=== PATIENT | female | born 1980 | race Caucasian/White ===

== ENCOUNTER 2019-09-03 12:51 | Inpatient (IN) ==
[2019-09-03] MEDS ORDERED: TORADOL IM ONE (13:33)
[2019-09-03] MEDS ORDERED: ZOFRAN ODT PO ONE (13:34)
[2019-09-03 13:53] LABS: URINE SOURCE CLEAN CATCH
[2019-09-03 13:55] LABS: BASO# 0.06 X1000 (0.0-0.2); BASO% 0.3 % (0.0-0.8); BILIRUBIN URINE NEGATIVE (NEGATIVE); BLOOD URINE NEGATIVE (NEGATIVE); COLOR STRAW; EOS# 0.07 X1000 (0.0-0.7); EOS% 0.4 % (0.0-10.0); GLUCOSE URINE NEGATIVE (NEGATIVE); HEMATOCRIT 45.7 % (37.0-47.0); HEMOGLOBIN 15.3 g/dL (12.0-16.0); IMM GRAN# 0.07 X1000 (0.0-0.04); IMM GRAN% 0.4 % (0.0-0.5); KETONE URINE NEGATIVE (NEGATIVE); LEUKOCYTES URINE NEGATIVE (NEGATIVE); LYMPH# 2.39 X1000 (1.2-3.4); LYMPH% 13.3 % (20.5-51.1); MCH 30.8 PG (27-31); MCHC 33.5 g/dL (33-37); MONO# 1.02 X1000 (0.11-0.59); MONO% 5.7 % (1.7-9.3); MPV 10.6 FL (7.4-10.4); NEUT# 14.41 X1000 (1.4-6.5); NEUT% 79.9 % (42.2-75.2); NITRITE URINE NEGATIVE (NEGATIVE); PH URINE 6.5; PLT 325 X1000 (130-400); PROTEIN URINE NEGATIVE (NEGATIVE); RBC 4.97 XMIL (4.2-5.4); RDW 12.3 % (11.5-14.5); SP GRAVITY URINE 1.008; TURBIDITY URINE CLEAR (CLEAR); UROBILINOGEN URINE NORMAL (NORMAL); WBC 18.02 X1000 (4.8-10.8)
[2019-09-03 13:57] LABS: UR EPITHELIAL CELLS <10 /HPF (<10); URINE BACTERIA NEGATIVE /HPF; URINE RBC <10 /HPF (<10); URINE WBC <10 /HPF (<10)
[2019-09-03 14:12] LABS: AGAP 14; ALB/GLOB RATIO 1.5; ALBUMIN 4.3 g/dL (3.5-5.0); ALKALINE PHOSPHATASE 88 U/L (32-104); BUN 8 mg/dL (8-22); CALCIUM 9.6 mg/dL (8.8-10.2); CHLORIDE 101 mmol/L (98-107); COSMO 272; CREATININE 0.7 mg/dL (0.5-0.9); ESTIMATED GFR > 60; GLUCOSE 93 mg/dL (70-104); GOT 26 U/L (10-30); GPT 27 U/L (10-36); POTASSIUM 3.9 mmol/L (3.5-5.1); SODIUM 137 mmol/L (136-145); TCO2 22 mmol/L (25-35); TOTAL BILIRUBIN 0.49 mg/dL (0.20-1.00); TOTAL PROTEIN 7.2 g/dL (6.3-8.3)
--- NOTE | 2019-09-03 14:33 | Diag Imaging Result Doc PS360 ---
EXAM: CT ABDOMEN/PELVIS W/O CONTRAST HISTORY: right flank pain TECHNIQUE: CT abdomen and pelvis without oral or intravenous contrast COMPARISON: None. FINDINGS: The gallbladder has been removed. The liver is prominent measuring over 20 cm in length. No focal hepatic abnormality identified on this noncontrasted exam. No inflammation about the pancreas. Normal spleen and adrenal glands. There is a 4 mm nonobstructing right lower pole renal stone. No left renal stone. No perinephric inflammation. No ureteral stones or hydronephrosis. Normal aorta. Normal appendix. No abscess. No bowel obstruction. No ascites. The urinary bladder is only mildly distended. The uterus has been removed. No pelvic mass. IMPRESSION: 1.Hepatomegaly 2.Cholecystectomy 3.Nonobstructing right renal stone 4.Hysterectomy This exam was performed using automated exposure control, adjustment of mA or kV according to patient size, and/or use of iterative reconstruction technique. Electronically signed by Abel Reece 09/03/2019 2:30 PM
--- NOTE | 2019-09-03 15:08 | PROVIDER DOCUMENTATION ---
HPI-Abdominal Pain/GI Problem - General Chief Complaint: Flank Pain Stated Complaint: RIGHT SIDE PAIN Time Seen by Provider: 09/03/19 13:11 Allergies/Adverse Reactions: Patient Allergies Allergy/AdvReac Type Severity Reaction Status Date / Time hydromorphone HCl * Allergy Mild RASH Verified 09/03/19 14:50 [From Dilaudid] Sulfa (Sulfonamide Allergy Mild RASH Verified 09/03/19 14:50 Antibiotics) Corticosteroids Allergy NAUSEA Verified 09/03/19 14:50 (Glucocorticoids) Home Medications: Home Medication List Medication Instructions Recorded Confirmed Last Taken Type Levothyroxine [Synthroid] 1 tab PO DAILY 09/03/19 09/03/19 09/03/19 History Metformin [Glucophage] 1 tab PO BID 09/03/19 09/03/19 09/03/19 History Nebivolol HCl [Bystolic] 1 tab PO DAILY 09/03/19 09/03/19 09/02/19 History Valacyclovir [Valtrex] 1 tab PO DAILY 09/03/19 09/03/19 09/03/19 History - History of Present Illness-ABD Nature of Presenting Problems: Patient is a 39 year old white female who presents with worsening lower abdomen pain with associated diarrhea, nausea, and vomiting. Unable to keep fluids down. Abdominal Pain Onset Location: reports: other (lower abdomen pain) Quality of Pain: reports: cramping Severity in ED: reports: moderate Onset/Duration: reports: gradual Review of Systems - Adult - REVIEW OF SYSTEMS - ADULT Constitutional: denies: chills, fever Eyes: reports: no symptoms reported Ears, Nose, Mouth & Throat: reports: no symptoms reported Cardiovascular: reports: no symptoms reported Respiratory: reports: no symptoms reported Gastrointestinal: reports: abdominal pain, diarrhea, nausea, vomiting Genitourinary: reports: no symptoms reported Musculoskeletal: reports: no symptoms reported Integumentary: reports: no symptoms reported Neurological: reports: no symptoms reported Psychiatric: reports: no symptoms reported Endocrine: reports: no symptoms reported Hematologic/Lymphatic: reports: no symptoms reported Allergic/Immunologic: reports: no symptoms reported Past History - Adult - PAST MEDICAL HISTORY-ADULT Review of Records: reports: Old Records Reviewed, Nursing Assessment Review, Medications Reviewed, Social history reviewed & non-contributory. Major Childhood Illnesses: reports: denies history Cardiovascular: reports: HTN Respiratory: reports: asthma Gastrointestinal: reports: denies history Obstetrical/Gynecological: reports: denies history Genitourinary: reports: denies history Musculoskeletal: reports: denies history Neurological: reports: denies history Endocrine/Immune: reports: denies history Other Conditions: reports: denies history - PRIOR SURGERIES/PROCEDURES Surgical/Procedure History: reports: cholecystectomy, , tonsillectomy, joint replacement - IMMUNIZATION STATUS Childhood Immunizations: See Nurse Assessment Flu Vaccine: See Nurse Assessment - FAMILY HISTORY Family History: reviewed, not pertinent Physical Exam-General - CONSTITUTIONAL General Appearance: alert, no apparent distress, other (in pain) - EYES Eyes: other (clear) - HEAD, EARS, NOSE, MOUTH & THROAT HENMT: normocephalic/atraumatic, moist mucous membranes - NECK Neck: non-tender, full range of motion, supple - RESPIRATORY Respiratory: lungs clear - CARDIOVASCULAR Cardiovascular: regular rate, rhythm - GASTROINTESTINAL (ABDOMEN) Abdominal Exam: soft, other (tenderness over lower abdomen, no rebound or guarding) - LYMPHATIC Lymphatic: no adenopathy - MUSCULOSKELETAL Back Exam: normal inspection Extremity: non-tender - SKIN Integumentary: normal color, normal turgor - NEUROLOGIC Neurologic: grossly normal Progress - PLAN OF CARE/RESULTS Progress/Plan/Lab Results: Vital Signs - 8 hr 09/03/19 13:01 Temperature 98.0 F Pulse Rate 89 Respiratory Rate 16 Blood Pressure 141/94 O2 Sat by Pulse Oximetry 97 Laboratory Results - last 24 hr 09/03/19 09/03/19 09/03/19 13:26 13:26 13:26 WBC 18.02 H RBC 4.97 Hgb 15.3 Hct 45.7 MCV 92.0 MCH 30.8 MCHC 33.5 RDW Std Deviation 12.3 Plt Count 325 MPV 10.6 H Immature Gran % (Auto) 0.4 Neut % (Auto) 79.9 H Lymph % (Auto) 13.3 L Lake % (Auto) 5.7 Eos % (Auto) 0.4 Baso % (Auto) 0.3 Immature Gran # (Auto) 0.07 H Neut # (Auto) 14.41 H Lymph # (Auto) 2.39 Lake # (Auto) 1.02 H Eos # (Auto) 0.07 Baso # (Auto) 0.06 Sodium 137 Potassium 3.9 Chloride 101 Carbon Dioxide 22 L Anion Gap 14 BUN 8 Creatinine 0.7 Estimated GFR/1.73 m2 > 60 BUN/Creatinine Ratio 11 Glucose 93 Calculated Osmolality 272 Calcium 9.6 Total Bilirubin 0.49 AST 26 ALT 27 Alkaline Phosphatase 88 Total Protein 7.2 Albumin 4.3 Globulin 2.9 Albumin/Globulin Ratio 1.5 Urine Source CLEAN CATCH Urine Color STRAW Urine Turbidity CLEAR Urine pH 6.5 Ur Specific [place] 1.008 Urine Protein NEGATIVE Ur Glucose (Stick) NEGATIVE Ur Ketones (Stick) NEGATIVE Urine Blood NEGATIVE Urine Nitrite NEGATIVE Urine Bilirubin NEGATIVE Urobilinogen Dipstick NORMAL Urine Leukocytes NEGATIVE Urine WBC (Auto) <10 Urine RBC (Auto) <10 U Epithel Cells (Auto) <10 Urine Bacteria (Auto) NEGATIVE Orders Category Date Time Status CT ABDOMEN/PELVIS W/O CONTRAST [CT] Stat Exams 09/03/19 13:35 Completed CBC WITH ELECTRONIC DIFF [HEME] Stat Lab 09/03/19 13:26 Completed CMP [COMPREHENSIVE METABOLIC PANEL] [CHEM] Stat Lab 09/03/19 13:26 Completed URINALYSIS W/POSS RFLX CULT [URINALYSIS] Stat Lab 09/03/19 13:26 Completed Ketorolac [Toradol] Med 09/03/19 13:33 Discontinued 60 mg IM NOW ONE Ondansetron Odt [Zofran Odt] Med 09/03/19 13:34 Discontinued 4 mg PO NOW ONE Result Diagrams: 09/03/19 13:26 09/03/19 13:26 - CT/MRI 1 CT Study: Abdomen, Pelvis CT Results: NAD, normal appendix Departure - Departure Date of Disposition Decision: 09/03/19 Time of Disposition Decision: 16:51 DIAGNOSIS: Lower abdominal pain Leukocytosis Qualifiers: Leukocytosis type: unspecified Qualified Code(s): D72.829 - Elevated white blood cell count, unspecified Nausea and vomiting Qualifiers: Vomiting type: unspecified Vomiting Intractability: unspecified Qualified Code(s): R11.2 - Nausea with vomiting, unspecified Disposition: ADMITTED INPATIENT 09 Certified Medical Emergency: Emergent Condition: Stable Referrals and Follow-Ups: None,PCP [Primary Care Provider] - - Critical Care Note This patient required my direct & personal management of CC.: No Attestation - Physician/ KLARISSA Attestation Patient care was provided by Advanced Practice Provider:: No The physician spent face to face time with patient:: Yes Advanced Practice Provider documentation review:: Supervising physician onsite and consulted in the evaluation and care of this patient. The physician did have a face to face encounter with the patient.
--- NOTE | 2019-09-03 15:24 | Diag Imaging Result Doc PS360 ---
EXAM: CHEST-2 VIEWS HISTORY: leukocytosis TECHNIQUE: Two views COMPARISON: 09/02/2013 FINDINGS: The lungs are well expanded. The heart is not enlarged. The vessels are not distended. There are no infiltrates. No pleural effusions. IMPRESSION: No pneumonia Electronically signed by Abel Reece 09/03/2019 3:22 PM
[2019-09-03] MEDS ORDERED: PHENERGAN IV PRN (17:53)
[2019-09-03] MEDS ORDERED: SODIUM CHLORIDE 0.9% INJ PRN (17:53)
[2019-09-03] MEDS ORDERED: TYLENOL PO PRN (17:53)
[2019-09-03] MEDS ORDERED: LEVAQUIN 750 MG in NS 150 ML IV SCH (18:00)
[2019-09-03] MEDS ORDERED: SODIUM CHLORIDE 0.9% INJ SCH (18:00)
--- NOTE | 2019-09-03 18:30 | HISTORY AND PHYSICAL ---
PRIMARY CARE PROVIDER: No one. CHIEF COMPLAINT: Abdominal pain, nausea, vomiting, diarrhea. HISTORY OF PRESENT ILLNESS: Ms. Kiara Perry is a 39-year-old female with a medical history of morbid obesity, hypertension, borderline diabetes, PCOS, hypothyroidism, HSV 2, and irritable bowel syndrome with diarrhea. She has chronic diarrhea. She states that last weekend she had about a 2-hour bout of severe abdominal pain, but then it went away and then on Tuesday, the abdominal pain returned. It is primarily in the right lower quadrant area. Her diarrhea increased to about 10 to 15 times a day, was watery and bright green. She also had associated nausea and vomiting and the nausea has been constant. She denies fever or any other complaints. Her white count is 18,000. She is afebrile. So, we will send off some stool studies. Her abdominal CT did not show anything acute, so we will get an ultrasound and probably treat either like it is a gastroenteritis, but given the elevated white blood cell count, we will probably add Levaquin and Flagyl along with it. PAST MEDICAL HISTORY: 1. Hypertension. 2. Diabetes mellitus type 2. 3. Hypothyroidism. 4. 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 5. PCOS with endometriosis. 6. Irritable bowel syndrome with diarrhea. SURGICAL HISTORY: 1. She states that she had a granuloma removed from her colon back in 2014. Had a repeat colonoscopy in 2016 that was clear [address] Dr[address] Leslie. 2. section. 3. Left knee scope. 4. Bilateral feet bunionectomy. 5. Partial hysterectomy. 6. Multiple female scopes for endometriosis. 7. Cholecystectomy. 8. Laminectomy of the lower back. 9. Cyst drained from the sinuses. 10. Tonsillectomy and adenoidectomy. SOCIAL HISTORY: Quit smoking in 2003. Prior to that, she smoked less than a half pack per day since the age of 19. Rarely drinks alcohol, maybe once in a year. Denies any illicit drug use. Lives with her grandmother and daughter. 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 FAMILY HISTORY: Mother, hypertension, diabetes and an autoimmune lung disease. She was unclear of what that was. Father hypertension. ALLERGIES: Sulfa, Dilaudid, and latex, but also listed as glucocorticoid or corticosteroids. HOME MEDICATIONS: 1. Bystolic 2.5 mg p.o. daily. 2. Metformin 500 mg p.o. twice daily. 3. Synthroid 75 mcg p.o. daily. 4. Valtrex 500 mg p.o. daily. REVIEW OF SYSTEMS: Fourteen point review of systems are complete and all were negative except for those mentioned above in HPI. PHYSICAL EXAMINATION: VITAL SIGNS: Temperature 98 degrees, heart rate 89, respiratory rate 16, blood pressure 141/94, O2 saturation 97% on room air. She is 6 feet 1-1/2 inches tall. She is 292 pounds with a BMI of 38. GENERAL: Ms. Kiara Perry is a 39-year-old female. She is in no acute distress. She is able answer questions appropriately. HEENT: Atraumatic, normocephalic. Pupils equal, round, reactive to light. Extraocular movements intact. Mucous membranes are dry. NECK: Trachea midline. CARDIOVASCULAR: S1, S2. Regular rate and rhythm. No rubs, gallops, murmurs. She has trace lower extremity edema +2 dorsalis and radial pulses. Negative for JVD and carotid bruits. PULMONARY: Clear to auscultate, bilateral breath sounds. No accessory muscle use or work of breathing noted. Tolerating room air. GI: Soft, tender in the right lower quadrant. Positive bowel sounds x4. EXTREMITIES: Moves all extremities equally. Full range of motion. NEUROLOGIC: A and O x3. Follows commands. Sensory is intact. SKIN: Warm, dry, intact. LABORATORY DATA: White blood cells 18,000, hemoglobin 15, hematocrit 45, platelet count 325,000. Sodium 137, potassium 3.9, BUN 8, creatinine 0.7, glucose 93, calcium 9.6, albumin 4.3. Urinalysis negative. IMAGING: Chest x-ray: No pneumonia. Abdominal pelvic CT: Hepatomegaly, cholecystectomy, nonobstructive right renal stone and hysterectomy. ASSESSMENT AND PLAN: 1. Gastroenteritis, viral versus possible diverticulitis. She has got right lower quadrant abdominal pain, however, it was not picked up on imaging. She does have an elevated white blood cell count of 18,000. She is having significant diarrhea. We will go ahead and get stool samples to rule out Clostridium difficile and start her on Levaquin and Flagyl for now and will get ultrasound of the abdomen in the morning. 2. Hypertension. Continue Bystolic. 3. Diabetes mellitus, borderline type 2, mostly associated with the polycystic ovary syndrome. She is on metformin. We will continue that. 4. Hypothyroidism. Continue Synthroid. 5. History of chronic herpes simplex virus 2. Continue her Valtrex. 6. Irritable bowel syndrome with diarrhea. Please see #1. 7. Deep venous thrombosis prophylaxis. Sequential compression devices. Dictated by MASON Cota for Jayne Blackburn MD cc: MASON Cota MD
[2019-09-03 19:06] LABS: AMYLASE 50 U/L (20-200); LIPASE 28 U/L (13-60)
[2019-09-03] MEDS: HUMULIN R SUBQ SCH (20:43)
[2019-09-03] MEDS: GLUCOPHAGE PO SCH (20:43)
[2019-09-03] MEDS: FLAGYL 500 MG/NS 500 MG/100 ML IVPB IV SCH (20:44)
[2019-09-03] MEDS: NS 1,000 ML IV SCH (20:44)
[2019-09-03] MEDS: PROTONIX IV SCH (20:44)
[2019-09-03] MEDS: CARAFATE LIQUID PO SCH (20:44)
[2019-09-04] MEDS: FLAGYL 500 MG/NS 500 MG/100 ML IVPB IV SCH ×3 (01:11→19:12)
[2019-09-04] MEDS: CARAFATE LIQUID PO SCH ×4 (01:11→20:46)
[2019-09-04] MEDS: HUMULIN R SUBQ SCH ×4 (06:02→20:45)
[2019-09-04] MEDS: SYNTHROID PO SCH (06:03)
[2019-09-04 07:47] LABS: BASO# 0.03 X1000 (0.0-0.2); BASO% 0.2 % (0.0-0.8); EOS# 0.15 X1000 (0.0-0.7); EOS% 1.2 % (0.0-10.0); HEMATOCRIT 42.9 % (37.0-47.0); HEMOGLOBIN 14.4 g/dL (12.0-16.0); IMM GRAN# 0.02 X1000 (0.0-0.04); IMM GRAN% 0.2 % (0.0-0.5); LYMPH# 2.07 X1000 (1.2-3.4); LYMPH% 16.2 % (20.5-51.1); MCH 31.4 PG (27-31); MCHC 33.6 g/dL (33-37); MCV 93.5 FL (81-99); MONO# 1.24 X1000 (0.11-0.59); MONO% 9.7 % (1.7-9.3); MPV 10.4 FL (7.4-10.4); NEUT# 9.24 X1000 (1.4-6.5); NEUT% 72.5 % (42.2-75.2); PLT 253 X1000 (130-400); RBC 4.59 XMIL (4.2-5.4); RDW 12.3 % (11.5-14.5); WBC 12.75 X1000 (4.8-10.8)
[2019-09-04] MEDS ORDERED: TORADOL IV ONE ×2 (08:41→08:43)
--- NOTE | 2019-09-04 08:42 | Diag Imaging Result Doc PS360 ---
EXAM: US ABDOMEN-COMPLETE - 09/04/2019 HISTORY: abd pain TECHNIQUE: Ultrasound abdomen COMPARISON: 07/05/2019 CT abdomen/pelvis without contrast FINDINGS: The gallbladder is surgically absent. The common bile duct is normal caliber at 4 mm. The liver appears mildly echodense diffusely suggesting mild fatty infiltration. There is no focal liver lesion identified. Spleen is borderline prominent, measuring 12.7 x 13.6 x 7.3 cm in size. There is no focal splenic lesion identified. There is no ascites seen. Visualized portions of the pancreas are unremarkable. There are no abnormalities of the bilateral kidneys identified. The nonobstructing stone in the right kidney which was seen on the recent CT scan is not discretely visualized, but this may relate to greater sensitivity of CT for detecting small renal stones. The bilateral aorta and IVC appear normal caliber. IMPRESSION: Status post cholecystectomy. Normal caliber common bile duct at 4 mm. Apparent mild fatty infiltration of liver. Borderline prominent spleen. Electronically signed by Presley Helton 09/04/2019 8:39 AM
[2019-09-04 09:27] LABS: ALBUMIN 4.1 g/dL (3.5-5.0); ALKALINE PHOSPHATASE 79 U/L (32-104); BUN 10 mg/dL (8-22); CREATININE 0.8 mg/dL (0.5-0.9); ESTIMATED GFR > 60; GLUCOSE 92 mg/dL (70-104); GOT 25 U/L (10-30); GPT 22 U/L (10-36); MAGNESIUM 1.8 mg/dL (1.5-2.7); TCO2 17 mmol/L (25-35); TOTAL BILIRUBIN 0.81 mg/dL (0.20-1.00); TOTAL PROTEIN 6.2 g/dL (6.3-8.3)
[2019-09-04] MEDS: VALTREX PO SCH (09:36)
[2019-09-04] MEDS: BYSTOLIC PO SCH (09:37)
[2019-09-04] MEDS: GLUCOPHAGE PO SCH ×2 (09:37→20:46)
[2019-09-04] MEDS: NS 1,000 ML IV SCH ×2 (09:37→20:46)
[2019-09-04] MEDS: VANCOCIN PO SCH ×3 (09:39→20:46)
[2019-09-04 10:57] LABS: CHLORIDE 101 mmol/L (98-107); POTASSIUM 4.2 mmol/L (3.5-5.1); SODIUM 138 mmol/L (136-145)
[2019-09-04 11:41] LABS: AGAP 20
[2019-09-04 11:42] LABS: COSMO 274
--- NOTE | 2019-09-04 15:50 | PROGRESS NOTE ---
DATE: 09/04/2019 SUBJECTIVE: This patient has been admitted due to abdominal pain, nausea, vomiting, and diarrhea, had abdominal ultrasound which showed that this patient is status post cholecystectomy, but normal caliber of the common bile duct at 4 mm. Her abdomen and pelvis CT scan showed some hepatomegaly, cholecystectomy, nonobstructing right renal stone and hysterectomy. She is feeling better today. She has been getting IV fluids. She has a positive C difficile antigen and she has been placed on vancomycin. In the other hand, she has been getting Flagyl. I will continue with that. Her white blood cell count decreased from 18 to 12. Kidney function has been stable and lactate level normalized, initially was 3.1 and now it has been 1.42 and 2. I will continue with her home medications. OBJECTIVE: Vital Signs: Temperature 98.1 degrees, pulse 78, respiratory rate 18, blood pressure 165/94, oxygen saturation 98% on room air. HEENT: Head normocephalic, no trauma. PERRLA. Neck: Supple. No JVD. No masses. Central trachea. Chest: Clear to auscultation. No wheezing. No rales. Abdomen: Soft, is tender to palpation at the level of the periumbilical area and lower abdomen. She does have some signs of mild distention in the lower abdomen as well. No signs of peritoneal irritation, though. Extremities: No edema. No clubbing. No cyanosis. Neurological: The patient is awake and alert. She is oriented x3. No focal deficits. LABORATORY: WBC 12.7, hemoglobin 14.4, hematocrit 42.9, platelets 253,000. Sodium 138, potassium 4.2, chloride 101, bicarbonate 17, BUN 10, creatinine 0.8, glucose 92, calcium 9, magnesium 1.8. Normal LFTs. ASSESSMENT AND PLAN: 1. Abdominal pain, likely due to Clostridium difficile colitis. We do have a Clostridium difficile antigen that has been positive, and she has been placed on vancomycin orally and she was already getting Flagyl. We will continue with intravenous fluids. She is tolerating orals and actually I will advance her diet from a clear liquid diet to a full liquid diet to see how she does. 2. Hypertension. Continue with her home medication Bystolic. 3. Type 2 diabetes. She has been on metformin. We will continue with the same treatment. 4. Hypothyroidism. Continue with Synthroid. 5. History of chronic herpes simplex virus 2. Continue with Valtrex. 6. History of irritable bowel syndrome with diarrhea. We will continue with same management for now, seems to be getting better. 7. Deep vein thrombosis prophylaxis with sequential compression devices. cc: Rob Walker MD
[2019-09-04] MEDS: PROTONIX IV SCH (19:12)
[2019-09-05] MEDS: FLAGYL 500 MG/NS 500 MG/100 ML IVPB IV SCH ×3 (02:29→17:48)
[2019-09-05] MEDS: CARAFATE LIQUID PO SCH ×4 (02:29→20:58)
[2019-09-05] MEDS: VANCOCIN PO SCH ×4 (02:29→20:58)
[2019-09-05] MEDS: SYNTHROID PO SCH (06:32)
[2019-09-05] MEDS: HUMULIN R SUBQ SCH ×4 (06:53→21:00)
[2019-09-05 07:31] LABS: BASO# 0.02 X1000 (0.0-0.2); BASO% 0.2 % (0.0-0.8); EOS# 0.22 X1000 (0.0-0.7); HEMATOCRIT 40.6 % (37.0-47.0); HEMOGLOBIN 13.5 g/dL (12.0-16.0); IMM GRAN# 0.03 X1000 (0.0-0.04); IMM GRAN% 0.3 % (0.0-0.5); LYMPH# 2.19 X1000 (1.2-3.4); LYMPH% 20.1 % (20.5-51.1); MCH 31.3 PG (27-31); MCHC 33.3 g/dL (33-37); MONO# 0.89 X1000 (0.11-0.59); MONO% 8.2 % (1.7-9.3); MPV 9.8 FL (7.4-10.4); NEUT# 7.54 X1000 (1.4-6.5); NEUT% 69.2 % (42.2-75.2); PLT 238 X1000 (130-400); RBC 4.32 XMIL (4.2-5.4); RDW 12.2 % (11.5-14.5); WBC 10.89 X1000 (4.8-10.8)
[2019-09-05 07:59] LABS: AGAP 13; BUN 9 mg/dL (8-22); CALCIUM 8.8 mg/dL (8.8-10.2); CHLORIDE 105 mmol/L (98-107); COSMO 279; CREATININE 0.7 mg/dL (0.5-0.9); ESTIMATED GFR > 60; GLUCOSE 106 mg/dL (70-104); POTASSIUM 3.6 mmol/L (3.5-5.1); SODIUM 140 mmol/L (136-145); TCO2 22 mmol/L (25-35)
[2019-09-05] MEDS: BYSTOLIC PO SCH (08:59)
[2019-09-05] MEDS: VALTREX PO SCH (08:59)
[2019-09-05] MEDS: GLUCOPHAGE PO SCH ×2 (08:59→20:58)
[2019-09-05] MEDS ORDERED: IMODIUM PO PRN (13:37)
--- NOTE | 2019-09-05 16:10 | PROGRESS NOTE ---
DATE: 09/05/2019 SUBJECTIVE: This patient is still having diarrhea, at least 5 episodes yesterday night and 5 during the morning. She was having some nausea yesterday but not today, I believe she is getting better, numbers are better, including her white blood cell count and lactic acid. I will continue with IV fluids and treatment for 1 more day and tomorrow hopefully I will discharge this patient home. OBJECTIVE: Vital Signs: Temperature 97.8 degrees, pulse 69, respiratory rate 18, blood pressure 132/70, oxygen saturation 100% on room air. HEENT: Head normocephalic, no trauma. PERRLA. Neck: Supple. No JVD. No masses. Central trachea. Chest: Clear to auscultation. No wheezing. No rales. Abdomen: Soft, is tender to palpation at the level of the periumbilical area and lower abdomen. Extremities: No edema, no clubbing, no cyanosis. Neurological: The patient is awake, alert. She is oriented x3. No focal deficits. LABORATORY: WBC 10.8, hemoglobin 13.5, hematocrit 40.6, platelets 238,000. Sodium 140, potassium 3.6, chloride 105, bicarbonate 22, BUN 9, creatinine 0.7, glucose 106, calcium 8.8, magnesium 1.9. ASSESSMENT AND PLAN: 1. Abdominal pain, likely due to Clostridium difficile colitis. She has been getting vancomycin p.o. and Flagyl intravenous. She is getting better. Continue with intravenous fluids. I will advance the diet from a liquid diet to a soft diet, let us see how she does. She was having nausea yesterday night. 2. Hypertension. Continue with Bystolic. 3. Type 2 diabetes. She has been on metformin, continue with same management. 4. Hypothyroidism. Continue with Synthroid. 5. Chronic herpes simplex virus II. Continue with Valtrex. 6. History of irritable bowel syndrome with diarrhea. Continue with same management for now. She seems to be getting better. 7. Deep vein thrombosis prophylaxis with sequential compression devices. cc: Rob Walker MD
[2019-09-05] MEDS: PROTONIX IV SCH (17:48)
[2019-09-05] MEDS: NS 1,000 ML IV SCH ×2 (17:52)
[2019-09-06] MEDS: VANCOCIN PO SCH ×2 (02:58→09:03)
[2019-09-06] MEDS: CARAFATE LIQUID PO SCH ×2 (02:58→09:03)
[2019-09-06] MEDS: FLAGYL 500 MG/NS 500 MG/100 ML IVPB IV SCH ×2 (02:58→09:02)
[2019-09-06] MEDS: NS 1,000 ML IV SCH ×2 (03:01→09:11)
[2019-09-06] MEDS: HUMULIN R SUBQ SCH (06:24)
[2019-09-06] MEDS: SYNTHROID PO SCH (06:49)
[2019-09-06 07:31] VITALS: BP 152/79
[2019-09-06 08:03] LABS: BASO# 0.03 X1000 (0.0-0.2); BASO% 0.2 % (0.0-0.8); EOS# 0.17 X1000 (0.0-0.7); EOS% 1.4 % (0.0-10.0); HEMATOCRIT 42.3 % (37.0-47.0); HEMOGLOBIN 14.1 g/dL (12.0-16.0); IMM GRAN# 0.05 X1000 (0.0-0.04); IMM GRAN% 0.4 % (0.0-0.5); LYMPH# 2.69 X1000 (1.2-3.4); LYMPH% 21.6 % (20.5-51.1); MCH 31.3 PG (27-31); MCHC 33.3 g/dL (33-37); MCV 93.8 FL (81-99); MONO# 1.12 X1000 (0.11-0.59); MPV 10.1 FL (7.4-10.4); NEUT# 8.42 X1000 (1.4-6.5); NEUT% 67.4 % (42.2-75.2); PLT 269 X1000 (130-400); RBC 4.51 XMIL (4.2-5.4); RDW 12.2 % (11.5-14.5); WBC 12.48 X1000 (4.8-10.8)
[2019-09-06 08:14] LABS: AGAP 15; BUN 8 mg/dL (8-22); CALCIUM 9.4 mg/dL (8.8-10.2); CHLORIDE 104 mmol/L (98-107); COSMO 285; CREATININE 0.7 mg/dL (0.5-0.9); ESTIMATED GFR > 60; GLUCOSE 93 mg/dL (70-104); POTASSIUM 4.2 mmol/L (3.5-5.1); SODIUM 144 mmol/L (136-145); TCO2 25 mmol/L (25-35)
[2019-09-06] MEDS: VALTREX PO SCH (09:02)
[2019-09-06] MEDS: GLUCOPHAGE PO SCH (09:03)
[2019-09-06] MEDS: BYSTOLIC PO SCH (09:03)
[2019-09-06] MEDS ORDERED: PNEUMOVAX 23 IM ONE (12:37)
--- NOTE | 2019-09-06 20:06 | DISCHARGE SUMMARY ---
ADMISSION DATE: 09/03/2019 DISCHARGE DATE: 09/06/2019 DISCHARGE DIAGNOSES: 1. Abdominal pain and diarrhea due to Clostridium difficile colitis. 2. Hypertension. 3. Possible type 2 diabetes. 4. Hypothyroidism. 5. Chronic herpes simplex virus 2. 6. History of irritable bowel syndrome with diarrhea. PROCEDURES PERFORMED: Abdomen and pelvis CT scan dated 09/03/2019. Impression: Hepatomegaly, cholecystectomy, nonobstructing right renal stone, and hysterectomy. Chest x-ray dated 09/03/2019. Impression: No pneumonia. Abdomen ultrasound dated 09/04/2019. Impression: Status post cholecystectomy, normal caliber of the common bile duct at 4 mm. HOSPITAL COURSE: A 39-year-old female with a past medical history of obesity, hypertension, borderline diabetes, PCOS, hypothyroidism, HSV 2, and IBS with diarrhea admitted on 09/03/2019 due to severe abdominal pain that she has been having on and off mainly located in the lower abdomen with diarrhea at least 10 to 15 times per day, watery and bright green, associated with nausea, vomiting, and basically p.o. intolerance. No fever. Her white blood cell count was 18. We found out that this patient had Clostridium difficile colitis. She was placed on vancomycin p.o. and she was also on Flagyl. The diarrhea has been getting better on a daily basis. Today she is much better. Two episodes of loose bowel movement yesterday night and 1 today. No fever, no chills. She is tolerating p.o. I do believe she is able to go home. I will continue with vancomycin p.o. to complete 10 days. 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 She had a past medical history of a polyp in the colon that apparently had some features of malignancy. This has been explained to the patient. On the other hand, she will need to follow up with her primary care doctor in a week. PHYSICAL EXAMINATION: Vital Signs: Temperature 98.1 degrees, pulse 60, respiratory rate 18, blood pressure 152/79, oxygen saturation 98% on room air. HEENT: Head normocephalic. No trauma. PERRLA. Neck: Supple. No JVD. No masses. Central trachea. Chest: Clear to auscultation. No wheezing. No rales. Abdomen: Soft. Mild tenderness to palpation at the level of the periumbilical area. No signs of peritoneal irritation. Extremities: No edema, no clubbing. No cyanosis. Neurological: The patient is awake and alert. She is oriented x3. No focal deficits. LABORATORY: WBC 12.4, hemoglobin 14.1, hematocrit 42.3, platelet count 269,000. Sodium 144, potassium 4.2, chloride 104, bicarbonate 25, BUN 8, creatinine 0.7, glucose 93, calcium 2. DISCHARGE MEDICATIONS: Synthroid 75 mcg p.o. daily, loperamide 2 mg p.o. q. 4 hours as needed for diarrhea, metformin 1 tablet p.o. b.i.d. 500 mg tablet, Bystolic 2.5 mg p.o. daily, omeprazole 20 mg p.o. daily, Valtrex 500 mg p.o. daily, and vancomycin 125 mg p.o. q. 6 hours to complete 10 days of treatment. cc: Rob Walker MD
== END 2019-09-06 12:44 | disposition home or self-care (01) | DRG 373 ==
LOC: ED 12:51 → 3N 12:52 → SUATTDRO 12:52
PROVIDERS: ATTEND Internal Medicine